=== PATIENT | female | born 1980 | race African-American/Black ===

== ENCOUNTER 2017-07-08 14:30 | Emergency (ER) | payer OTHER, SELFPAY ==
[2017-07-08] MEDS ORDERED: HYDROcodone/Acetaminophen 10/325 mg Tablet ONE (15:44)
[2017-07-08] MEDS ORDERED: Ibuprofen 800 MG TAB ONE (15:44)
--- NOTE | 2017-07-08 22:15 | RAD ---
LEFT SHOULDER THREE VIEWS: 07/08/17 A fracture is present through the surgical neck of the humerus with mild displacement. The Y-view do es not show a dislocation of the humeral head, but the other two views show an abnormal relationship between the head and the glenoid fossa. There may be at least subluxation of the humeral head out o f the fossa on some of the views. The distal clavicle appears intact and the AC joint is not widened . IMPRESSION: 1. Mildly displaced fracture of the surgical neck of the humerus. 2. Probable subluxation of the humeral head. Code T POS: HOME
== END 2017-07-08 16:45 | disposition home or self-care (01) ==
LOC: BURERS 14:30
DX: S42.215A Unspecified nondisplaced fracture of surgical neck of left humerus, initial encounter for closed fracture (principal); S32.009A Unspecified fracture of unspecified lumbar vertebra, initial encounter for closed fracture; S62.602A Fracture of unspecified phalanx of right middle finger, initial encounter for closed fracture; F17.210 Nicotine dependence, cigarettes, uncomplicated; V49.9XXA Car occupant (driver) (passenger) injured in unspecified traffic accident, initial encounter